=== PATIENT | female | born 1970 | race Two or more races ===

== ENCOUNTER 2018-04-17 23:47 | Emergency (ER) | payer MEDICAID, OTHER ==
[~2018-04-17] VITALS: Ht 160 cm; Wt 72.6 kg
[2018-04-18 01:47] VITALS: BP 124/63
[2018-04-18] MEDS ORDERED: ACETAMINOPHEN/CODEINE#3 (300/30mg) TAB PO ONE (02:30)
== END 2018-04-18 03:00 | disposition home or self-care (01) ==
LOC: ER 23:47
DX: H61.21 Impacted cerumen, right ear (principal)
CPT/HCPCS: 69210